=== PATIENT | female | born 1990 | race Caucasian/White ===

== ENCOUNTER 2017-06-05 21:02 | Emergency (ER) | payer OTHER ==
[2017-06-05] MEDS: ACETAMINOPHEN 325 MG TAB PO (23:04)
[2017-06-05] MEDS: predniSONE 20 MG TAB PO (23:04)
[2017-06-05] MEDS: ALBUTEROL 0.083% (NEB) 2.5 MG/3 ML AMP HHN (23:41)
[2017-06-05] MEDS: IPRATROPIUM (NEB) 0.5 MG/2.5 ML AMP HHN (23:41)
== END 2017-06-06 02:43 | disposition home or self-care (01) ==
LOC: FTE 21:02
DX: J06.9 Acute upper respiratory infection, unspecified (principal)
CPT/HCPCS: 71045; 94664; 99284-25